=== PATIENT | male | born 1985 | race Hispanic/Latino ===

== ENCOUNTER 2019-04-19 21:55 | Emergency (ER) | payer OTHER ==
[~2019-04-19] VITALS: Ht 165.1 cm; Wt 76.5 kg
[2019-04-19 23:04] LABS: BASO % 0.2 % (0.0-1.0); EOS # 0.1 10^3/uL (0.0-0.5); EOS % 0.9 % (0.0-3.0); HEMATOCRIT 49.8 % (42.0-52.0); HEMOGLOBIN 16.7 g/dl (13.5-17.5); LYMPH # 3.5 10^3/uL (1.5-5.0); LYMPH % 35.3 % (24.0-44.0); MEAN CORPUSCULAR HEMOGLOBIN 30.5 pg (27.0-33.0); MEAN CORPUSCULAR HGB CONC 33.5 g/dl (32.0-36.5); MEAN CORPUSCULAR VOLUME 90.9 fl (80.0-96.0); MONO # 0.6 10^3/uL (0.0-0.8); MONO % 6.3 % (0.0-5.0); NEUTROPHILS # 5.7 10^3/uL (1.5-8.5); PLATELET COUNT, AUTOMATED 223 10^3/uL (150-450); RED BLOOD COUNT 5.48 10^6/uL (4.30-6.10)
[2019-04-19 23:15] LABS: INR 0.95; PROTHROMBIN TIME 12.4 SECONDS (11.8-14.0)
[2019-04-19 23:16] LABS: PARTIAL THROMBOPLASTIN TIME 27.8 SECONDS (25.0-38.4)
[2019-04-19 23:42] LABS: ALBUMIN 3.9 GM/DL (3.2-5.2); ALT/SGPT 66 U/L (12-78); BILIRUBIN,DIRECT 0.2 MG/DL (0.0-0.2); BILIRUBIN,TOTAL 1.2 MG/DL (0.2-1.0); BLOOD UREA NITROGEN 21 MG/DL (7-18); CALCIUM LEVEL 9.3 MG/DL (8.5-10.1); CARBON DIOXIDE LEVEL 27 MEQ/L (21-32); CHLORIDE LEVEL 103 MEQ/L (98-107); CK-MB VALUE MASS 1.2 NG/ML (<3.6); CPK CREATINE PHOSPHOKINASE 277 U/L (39-308); CREATININE FOR GFR 1.14 MG/DL (0.70-1.30); FREE T4 1.82 NG/DL (0.76-1.46); GLOMERULAR FILTRATION RATE > 60.0 (>60); GLUCOSE, FASTING 105 MG/DL (70-100); LIPASE 103 U/L (73-393); MB/CK RELATIVE INDEX 0.43 (< OR =4); SODIUM LEVEL 137 MEQ/L (136-145); TOTAL PROTEIN 7.9 GM/DL (6.4-8.2); TROPONIN I < 0.02 NG/ML (< 0.10)
[2019-04-19 23:45] VITALS: BP 128/82
--- NOTE | 2019-04-20 08:22 | REP ---
Chest x-ray: Two views. History: Chest pain . Comparison study: No comparison study . Findings: The lungs are well inflated and free of infiltrate. The pleural angles are sharp. The heart size is normal. Pulmonary vasculature is not increased. No significant bony abnormality is seen. Impression: Negative chest x-ray. Electronically Signed by Denver Yung MD 04/20/2019 08:13 A
--- NOTE | 2019-04-22 06:07 | ECGEPIP ---
[facility] - ED Test Date: 2019-04-19 Pat Name: CHECO MERINO Department: Room: - Gender: Male [employer]: sb : 1985 Requested By: CHAYA Mckeon Order Number: [id number] Reading MD: Stan Marie Measurements Intervals [place] Rate: 79 P: 32 UT: 146 QRS: -3 QRSD: 102 T: 12 QT: 377 QTc: 434 Interpretive Statements SINUS RHYTHM MODERATE INTRAVENTRICULAR CONDUCTION DELAY NONSPECIFIC T-WAVE ABNORMALITY NO PRIORS FOR COMPARISON Electronically Signed on 04-22-2019 6:07:11 EST by Stan Marie
== END 2019-04-20 00:03 | disposition home or self-care (01) ==
LOC: M ED 21:55
DX: R55 Syncope and collapse (principal); R19.7 Diarrhea, unspecified; I45.89 Other specified conduction disorders

== ENCOUNTER 2019-06-09 13:26 | Emergency (ER) | payer OTHER ==
[~2019-06-09] VITALS: Ht 165.1 cm; Wt 76.4 kg
[2019-06-09] MEDS ORDERED: PEPT262C2 PO (13:34)
[2019-06-09] MEDS ORDERED: PANTOPRAZOLE 40MG TAB (PROTONIX) PO ONE (13:45)
[2019-06-09] MEDS ORDERED: GI COCKTAIL 50ML BTL(HYOSCYAMINE/MAALOX/LIDOCAINE VISCOUS)(1:3:1) PO ONE (13:45)
[2019-06-09 14:11] LABS: BASO % 0.5 % (0.0-1.0); EOS # 0.1 10^3/uL (0.0-0.5); EOS % 1.1 % (0.0-3.0); HEMATOCRIT 51.6 % (42.0-52.0); HEMOGLOBIN 17.1 g/dl (13.5-17.5); LYMPH # 2.2 10^3/uL (1.5-5.0); LYMPH % 30.1 % (24.0-44.0); MEAN CORPUSCULAR HEMOGLOBIN 29.9 pg (27.0-33.0); MEAN CORPUSCULAR HGB CONC 33.1 g/dl (32.0-36.5); MEAN CORPUSCULAR VOLUME 90.2 fl (80.0-96.0); MONO # 0.4 10^3/uL (0.0-0.8); MONO % 5.4 % (0.0-5.0); NEUTROPHILS # 4.6 10^3/uL (1.5-8.5); NEUTROPHILS % 62.6 % (36.0-66.0); PLATELET COUNT, AUTOMATED 203 10^3/uL (150-450); RED BLOOD COUNT 5.72 10^6/uL (4.30-6.10); WHITE BLOOD COUNT 7.4 10^3/uL (4.0-10.0)
[2019-06-09 14:40] LABS: ALT/SGPT 76 U/L (12-78); BILIRUBIN,DIRECT 0.5 MG/DL (0.0-0.2); BILIRUBIN,TOTAL 2.4 MG/DL (0.2-1.0); BLOOD UREA NITROGEN 13 MG/DL (7-18); CALCIUM LEVEL 10.1 MG/DL (8.5-10.1); CARBON DIOXIDE LEVEL 27 MEQ/L (21-32); CHLORIDE LEVEL 103 MEQ/L (98-107); GLOMERULAR FILTRATION RATE > 60.0 (>60); GLUCOSE, FASTING 96 MG/DL (70-100); LIPASE 95 U/L (73-393); POTASSIUM SERUM 4.6 MEQ/L (3.5-5.1); SODIUM LEVEL 137 MEQ/L (136-145); TOTAL PROTEIN 8.4 GM/DL (6.4-8.2)
[2019-06-09] MEDS ORDERED: ISOVUE-370 76% 100ML VIAL As Ordered ONE (15:13)
--- NOTE | 2019-06-09 15:42 | REP ---
RIGHT UPPER QUADRANT ULTRASOUND: Real-time sonographic evaluation of the right upper quadrant performed. Gallbladder demonstrates no evidence of intraluminal sludge or calculi, wall thickening or pericholecystic fluid. There is no intrahepatic or extrahepatic biliary dilatation, common bile duct measuring 3 mm. Liver demonstrates diffuse increased echotexture compatible with diffuse fibrofatty infiltration. There is some sparring of the parenchyma near the gallbladder. Visualized pancreas is grossly unremarkable but not well seen due to overlying bowel gas. Right kidney demonstrates no hydronephrosis with normal size 10.3 cm in length. There is no ascites. IMPRESSION: Diffuse fibrofatty infiltration of the liver. Otherwise negative right upper quadrant ultrasound. Electronically Signed by Easton Ruby MD 06/09/2019 04:25 P
[2019-06-09] MEDS ORDERED: PROT1TAB2 PO (16:15)
[2019-06-09 16:23] VITALS: BP 138/97
--- NOTE | 2019-06-09 16:30 | REP ---
CT ANGIOGRAM CHEST: TECHNIQUE: Axial contrast enhanced images from the thoracic inlet to the upper abdomen using 100 mL Isovue 370 intravenous contrast material with multiplanar reformations. There is no CT evidence of pulmonary embolism. There is no thoracic aortic aneurysm or dissection. The heart is normal in size. There is no pleural or pericardial effusion. There is no mediastinum, hilar, or chest wall adenopathy. No acute infiltrate is seen in either lung. The visualized osseous structures appear unremarkable. IMPRESSION: No CT evidence of pulmonary embolism or acute infiltrate. Electronically Signed by Easton Ruby MD 06/10/2019 12:45 P
--- NOTE | 2019-06-09 16:30 | REP ---
CT ABDOMEN/PELVIS WITH IV CONTRAST: TECHNIQUE: Axial contrast enhanced images from the lung bases to the pubic symphysis using 100 mL Isovue 370 intravenous contrast material with multiplanar reformations. The liver, spleen, adrenals, pancreas, and kidneys are unremarkable in appearance. There is no hydronephrosis. Gallbladder is grossly unremarkable. There is no abdominal aortic aneurysm. There is no adenopathy. There is no free air or free fluid. There is no bowel wall thickening. The appendix is normal. No pelvic mass is seen. Urinary bladder is mildly distended and grossly unremarkable. Visualized osseous structures are unremarkable. IMPRESSION: Negative CT abdomen/pelvis with IV contrast. No acute abnormalities are detected. Electronically Signed by Easton Ruby MD 06/10/2019 12:45 P
== END 2019-06-09 16:30 | disposition home or self-care (01) ==
LOC: M ED 13:26
DX: K76.0 Fatty (change of) liver, not elsewhere classified (principal); R10.13 Epigastric pain
CPT/HCPCS: 36415; 71275; 74177; 76705; 80048; 80076; 83690; 85025; 99284; Q9967

== ENCOUNTER 2020-01-04 13:04 | Emergency (ER) | payer OTHER ==
[~2020-01-04] VITALS: Ht 165.1 cm; Wt 76.8 kg
[~2020-01-04 13:04] MED LIST: PEPT262C2 PO; PROT1TAB2 PO
[2020-01-04 13:05] VITALS: BP 157/99
== END 2020-01-04 14:44 | disposition home or self-care (01) ==
LOC: M ED 13:04
DX: L53.8 Other specified erythematous conditions (principal); T78.1XXA Other adverse food reactions, not elsewhere classified, initial encounter

== ENCOUNTER → 2020-02-24 | Outpatient (CLI) | payer OTHER | LOC: M LABSMTC 12:59 | PROVIDERS: ATTEND Family Medicine | DX: Z20.822 Contact with and (suspected) exposure to COVID-19 (principal) ==

== ENCOUNTER → 2020-05-06 | Outpatient (CLI) | payer SELFPAY | LOC: M LABSMTC 09:02 | PROVIDERS: ATTEND Pediatrics | DX: Z11.52 Encounter for screening for COVID-19 (principal) ==